=== PATIENT | male | born 1990 | race Caucasian/White ===

== ENCOUNTER 2024-05-04 17:02 | Emergency (ER) | payer MEDICAID ==
[~2024-05-04] VITALS: Ht 180.3 cm; Wt 95.3 kg
[2024-05-04 17:07] VITALS: BP 120/72; PULSE 76; RESP 16; TEMP 98.2; O2SAT 99
[2024-05-04] MEDS ORDERED: BACITRACIN 14GM TUBE TOP ONE (18:30)
[2024-05-04] MEDS ORDERED: BO1 TP (18:48)
[2024-05-04] MEDS: TETANUS, DIPHTHERIA, PERTUSSIS VAC/PF 0.5ML (>10YR OLD) IM ONE (19:20)
[2024-05-04] MEDS: LIDOCAINE HCL 1% 20ML VIAL (Pyxis) INJ INFIL ONE (19:20)
[2024-05-04] MEDS: KETOROLAC 30MG/ML VIAL IM NR (19:26)
== END 2024-05-04 22:03 | disposition home or self-care (01) ==
LOC: ER 17:02
DX: S61.412A Laceration without foreign body of left hand, initial encounter (principal); E78.00 Pure hypercholesterolemia, unspecified; W26.0XXA Contact with knife, initial encounter; Y93.89 Activity, other specified; Y92.89 Other specified places as the place of occurrence of the external cause; Y99.8 Other external cause status
CPT/HCPCS: 73120; 90715; 12002; 90471; 96372; 99284; J1885; J3490; Z7610 ×3

== ENCOUNTER 2024-05-13 12:59 | Emergency (ER) | payer OTHER ==
[~2024-05-13] VITALS: Ht 177.8 cm; Wt 91.0 kg
[~2024-05-13 12:59] MED LIST: BO1 TP
[2024-05-13 13:16] VITALS: O2SAT 98
[2024-05-13 15:23] VITALS: BP 124/87; PULSE 75; RESP 18; TEMP 98
== END 2024-05-13 15:30 | disposition home or self-care (01) ==
LOC: ER 12:59
DX: S61.412D Laceration without foreign body of left hand, subsequent encounter (principal); X58.XXXD Exposure to other specified factors, subsequent encounter
CPT/HCPCS: 99281

== ENCOUNTER 2024-05-17 19:44 | Emergency (ER) | payer OTHER ==
[~2024-05-17] VITALS: Ht 180.3 cm; Wt 96.0 kg
[2024-05-17 20:07] VITALS: O2SAT 98
[2024-05-17 21:04] VITALS: BP 114/73; PULSE 70; RESP 18; TEMP 98
== END 2024-05-17 21:05 | disposition home or self-care (01) ==
LOC: ER 19:44
DX: S61.412D Laceration without foreign body of left hand, subsequent encounter (principal); X58.XXXD Exposure to other specified factors, subsequent encounter
CPT/HCPCS: 99281